=== PATIENT | male | born 1955 | race Caucasian/White ===

== ENCOUNTER 2017-08-19 10:41 | Emergency (ER) | payer BC ==
[2017-08-19] MEDS ORDERED: Labetalol 100 MG/20 ML MDV IVPUSH ONE ×2 (11:08→11:31)
[2017-08-19] MEDS ORDERED: Sodium Chloride 0.9% 10 ML Syringe FLUSH PRN (11:08)
--- NOTE | 2017-08-19 11:13 | EDM.PDOC ---
ED HPI GENERAL MEDICAL PROBLEM - General Chief Complaint: Cardiovascular Problem Stated Complaint: HIGH BLOOD PRESSURE Time Seen by Provider: 08/19/17 11:00 Source of Information: Reports: Patient History Limitations: Reports: No Limitations - History of Present Illness INITIAL COMMENTS - FREE TEXT/NARRATIVE: 62-year-old male presents for evaluation and treatment of high blood pressure. Patient was seen at a [facility] today. He was found to have elevated blood pressures. 240/160 at 10:20 and 208/140 at 10:25. He does not HIGH blood pressure. He does not see regular physician. Does not recall the last time he had his blood pressure checked. He is not on any medications for high blood pressure. Blood pressure at triage was 258/145. Upon my presentation to the room at around 11 AM his blood pressure was 229/134. He is asymptomatic. He denies any chest pain, shortness of breath, headaches, blurry vision, double vision, lightheadedness, dizziness, syncope, nausea or vomiting. 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 [facility] - Related Data Allergies Allergy/AdvReac Type Severity Reaction Status Date / Time No Known Allergies Allergy Verified 08/19/17 10:55 Home Meds: Home Meds Lisinopril 20 mg PO DAILY #14 tablet 08/19/17 [Rx] Past Medical History - Past Health History Medical/Surgical History: Denies Medical/Surgical History Social & Family History - Family History Family Medical History: Noncontributory - Tobacco Use Smoking Status *Q: Never Smoker Second Hand Smoke Exposure: No - Caffeine Use Caffeine Use: Reports: Coffee - Recreational Drug Use Recreational Drug Use: No ED ROS GENERAL - Review of Systems Review Of Systems: See Below HEENT: Denies: Vision Change Respiratory: Denies: Shortness of Breath Cardiovascular: Reports: Blood Pressure Problem. Denies: Chest Pain, Lightheadedness, Syncope GI/Abdominal: Denies: Nausea, Vomiting Neurological: Denies: Dizziness, Headache, Syncope ED EXAM, GENERAL - Physical Exam Exam: See Below Exam Limited By: No Limitations General Appearance: Alert, WD/WN, No Apparent Distress Eye Exam: Bilateral Eye: Normal Fundi, Normal Inspection, PERRL Ears: Normal External Exam, Normal Canal, Hearing Grossly Normal, Normal TMs Nose: Normal Inspection Throat/Mouth: Normal Inspection, Normal Lips, Normal Teeth, Normal Gums, Normal Oropharynx, Normal Voice, No Airway Compromise Neck: Normal Inspection Respiratory/Chest: No Respiratory Distress, Lungs Clear, Normal Breath Sounds Cardiovascular: Normal Peripheral Pulses, Regular Rate, Rhythm, No Murmur Neurological: Alert, Oriented, Normal Cognition Psychiatric: Normal Affect, Normal Mood Skin Exam: Warm, Dry, Normal Color EKG INTERPRETATION EKG Date: 08/19/17 Time: 11:15 Rhythm: NSR Rate (Beats/Min): 68 [place]: LAD-Left [place] Deviation P-Wave: Present QRS: Normal ST-T: Normal QT: Normal EKG Interpretation Comments: NSR at 68 bpm. LVH. Left artrial enlargement. t wave inversion in V4-V6. No acute ST segment changes. Reviewed by myself and Dr. White. Course - Vital Signs Last Recorded V/S: Last Vital Signs Temp 36.3 C 08/19/17 10:45 Pulse 63 08/19/17 12:35 Resp 18 08/19/17 10:45 BP 192/137 H 08/19/17 12:35 Pulse Ox 99 08/19/17 10:45 - Orders/Labs/Meds Orders: Active Orders 24 hr Category Date Time Status EKG Documentation Completion [RC] ASDIRECTED Care 08/19/17 10:59 Active Peripheral IV Care [RC] . DIRECTED Care 08/19/17 11:08 Active Sodium Chloride 0.9% [Saline Flush] Med 08/19/17 11:08 Active 10 ml FLUSH ASDIRECTED PRN Peripheral IV Insertion Adult [OM.PC] Routine Oth 08/19/17 11:07 Ordered EKG 12 Lead [EK] Stat Ther 08/19/17 10:59 Ordered Medication Orders Sodium Chloride (Saline Flush) 10 ml FLUSH ASDIRECTED PRN PRN Reason: Keep Vein Open Last Admin: 08/19/17 11:11 Dose: 10 ml Labs: Laboratory Tests 08/19/17 08/19/17 08/19/17 Range/Units 11:05 11:05 11:55 WBC 5.84 (4.23-9.07) K/mm3 RBC 4.95 (4.63-6.08) M/mm3 Hgb 15.1 (13.7-17.5) gm/L Hct 42.9 (40.1-51.0) % MCV 86.7 (79.0-92.2) fl MCH 30.5 (25.7-32.2) pg MCHC 35.2 (32.2-35.5) g/dl RDW Std Deviation 41.3 (35.1-43.9) fL Plt Count 206 (163-337) K/mm3 MPV 9.7 (9.4-12.3) fl Neut % (Auto) 69.0 H (34.0-67.9) % Lymph % (Auto) 22.4 (21.8-53.1) % Richardson % (Auto) 5.8 (5.3-12.2) % Eos % (Auto) 2.2 (0.8-7.0) Baso % (Auto) 0.3 (0.1-1.2) % Neut # (Auto) 4.02 (1.78-5.38) K/mm3 Lymph # (Auto) 1.31 L (1.32-3.57) K/mm3 Richardson # (Auto) 0.34 (0.30-0.82) K/mm3 Eos # (Auto) 0.13 (0.04-0.54) K/mm3 Baso # (Auto) 0.02 (0.01-0.08) K/mm3 Sodium 143 (136-145) mEq/L Potassium 3.5 (3.5-5.1) mEq/L Chloride 106 (98-107) mEq/L Carbon Dioxide 26 (21-32) mEq/L Anion Gap 14.5 (5-15) BUN 17 (7-18) mg/dL Creatinine 1.7 H (0.7-1.3) mg/dL Est Cr Clr Drug Dosing 44.15 mL/min Estimated GFR (MDRD) 41 (>60) mL/min BUN/Creatinine Ratio 10.0 L (14-18) Glucose 85 (80-115) mg/dL Calcium 9.1 (8.5-10.1) mg/dL Total Bilirubin 0.9 (0.2-1.0) mg/dL AST 26 (15-37) U/L ALT 31 (16-63) U/L Alkaline Phosphatase 62 (46-116) U/L Troponin I < 0.017 (0.00-0.056) ng/mL Total Protein 7.9 (6.4-8.2) g/dl Albumin 4.0 (3.4-5.0) g/dl Globulin 3.9 gm/dL Albumin/Globulin Ratio 1.0 (1-2) Urine Color Yellow (Yellow) Urine Appearance Slt cloudy H (Clear) Urine pH 7.5 (5.0-8.0) Ur Specific [place] 1.020 (1.005-1.030) Urine Protein 1+ H (Negative) Urine Glucose (UA) Negative (Negative) Urine Ketones Negative (Negative) Urine Occult Blood Trace-lysed H (Negative) Urine Nitrite Negative (Negative) Urine Bilirubin Negative (Negative) Urine Urobilinogen 0.2 (0.2-1.0) Ur Leukocyte Esterase Negative (Negative) Meds: Medications Generic Name Dose Route Start Last Admin Trade Name Freq PRN Reason Stop Dose Admin Sodium Chloride 10 ml 08/19/17 11:08 08/19/17 11:11 Saline Flush FLUSH 10 ml ASDIRECTED PRN Administration Keep Vein Open Discontinued Medications Generic Name Dose Route Start Last Admin Trade Name Freq PRN Reason Stop Dose Admin Labetalol HCl 20 mg 08/19/17 11:08 08/19/17 11:14 Normodyne IVPUSH 08/19/17 11:09 20 mg ONETIME ONE Administration Protocol Labetalol HCl 20 mg 08/19/17 11:31 08/19/17 11:39 Normodyne IVPUSH 08/19/17 11:32 20 mg ONETIME ONE Administration Protocol Lisinopril 20 mg 08/19/17 12:12 08/19/17 12:22 Prinivil PO 08/19/17 12:13 20 mg NOW STA Administration - Radiology Interpretation Free Text/Narrative:: chest [address] Valdivia: Heart is slightly enlarged. Tortuous thoracic aorta is seen. Minimal linear densities noted within both lungs most likely due date incidental discoid atelectasis or scarring. Lungs otherwise are clear. Bony structures are grossly intact. - Re-Assessments/Exams Free Text/Narrative Re-Assessment/Exam: 08/19/17 11:12 Plan will be to obtain labs, chest x-ray and EKG. Will start with IV labetalol 20 mg and see a response, as he is juma to blood pressure medications. We'll continue to monitor him here in the ER. I did educate him that given this is likely a chronic problem we will not shoot for a perfect blood pressure 120/80. Instead we will try to achieve a blood pressure, systolic, of 180 today. 08/19/17 11:31 Blood pressure at this time is 206/125, heart rate of 63. An additional 20 mg IV labetalol ordered. EKG shows no acute changes. Awaiting labs. 08/19/17 12:06 Blood pressure at this time is 207/123, HR in the 60s. Labs returned. Creatinine elevated at 1.7, GFR is 41. Awaiting UA. Case discussed with Dr. White. Recommended starting lisinopril 20mg PO daily and close follow-up. Given this is a chronic problem, furtherintervention is not indicated at this time. 08/19/17 12:40 I reviewed the chest x-ray, EKG and lab results with the patient. At this point his blood pressure is 192/137. Given this is a chronic problem reducing his blood pressure anymore will likely cause problems for him. Feel we should reduce his blood pressure gradually over time. I will start him on lisinopril 20 mg daily. I'll have him follow-up next week with family medicine. I encouraged him to purchase a blood pressure cuff and check his blood pressure daily. Discharge instructions as documented. Departure - Departure Time of Disposition: 12:40 Disposition: Home, Self-Care 01 Condition: Fair Clinical Impression: Hypertensive heart disease Prescriptions: Lisinopril 20 mg PO DAILY #14 tablet Referrals: PCP,None [Primary Care Provider] - Forms: ED Department Discharge Additional Instructions: Take the lisinopril as prescribed. 1 tab daily. Start this prescription tomorrow. I encourage you to purchase a blood pressure cuff. Check your blood pressure daily and record this. Take this to your follow-up appointment. Follow-up with family medicine or internal medicine next week. Recommend Dr. Narcisa Liz. Please call [phone] to schedule an appointment with one of these providers. Avoid salt. Please return to the ER if your symptoms change or worsen. - My Orders Last 24 Hours: My Active Orders 08/19/17 11:07 Peripheral IV Insertion Adult [OM.PC] Routine 08/19/17 11:08 Peripheral IV Care [RC] . DIRECTED Sodium Chloride 0.9% [Saline Flush] 10 ml FLUSH ASDIRECTED PRN - Assessment/Plan Last 24 Hours: My Active Orders 08/19/17 11:07 Peripheral IV Insertion Adult [OM.PC] Routine 08/19/17 11:08 Peripheral IV Care [RC] . DIRECTED Sodium Chloride 0.9% [Saline Flush] 10 ml FLUSH ASDIRECTED PRN
--- NOTE | 2017-08-19 12:00 | CR ---
Chest: Portable view of the chest was obtained. Comparison: No previous study. Heart is slightly enlarged. Tortuous thoracic aorta is seen. Minimal linear densities noted within both lungs most likely due to incidental discoid atelectasis or scarring. Lungs otherwise are clear. Bony structures are grossly intact. Impression: 1. Incidental findings. Nothing acute is appreciated on frontal chest x-ray. Diagnostic code #2
[2017-08-19] MEDS ORDERED: Lisinopril 20 MG Tab PO STA (12:12)
== END 2017-08-19 12:50 | disposition home or self-care (01) ==
LOC: JD.ED 10:41
DX: I11.9 Hypertensive heart disease without heart failure (principal); Z79.899 Other long term (current) drug therapy
CPT/HCPCS: 36415; 71010; 80053; 81003; 84484; 85025; 93005; 96374; 99284; A9270; J7050; 93010

== ENCOUNTER 2023-02-26 16:04 | Emergency (ER) | payer BC ==
[2023-02-26] MEDS ORDERED: LORazepam 2 MG/ML SDV IVPUSH ONE (16:57)
[2023-02-26] MEDS ORDERED: Glucagon,Human Recombinant 1 MG Vial IVPUSH ONE (16:57)
[2023-02-26] MEDS ORDERED: Sodium Chloride 0.9% 10 ML Syringe FLUSH PRN (16:57)
[2023-02-26] MEDS ORDERED: Lactated Ringers 1,000 ML IV SCH (17:00)
[2023-02-26] MEDS ORDERED: fentaNYL 100 MCG/2 ML SDV IVPUSH PRN (19:58)
[2023-02-26] MEDS ORDERED: HYDROmorphone 0.5 MG/0.5 ML Syringe IVPUSH PRN (19:58)
[2023-02-26] MEDS ORDERED: Ondansetron 4 MG/2 ML SDV IVPUSH PRN (19:58)
[2023-02-26] MEDS ORDERED: Succinylcholine 200 MG/10 ML MDV ONE (20:07)
[2023-02-26] MEDS ORDERED: Lidocaine 1% 2 ML ONE (20:07)
[2023-02-26] MEDS ORDERED: Ondansetron 4 MG/2 ML SDV ONE (20:07)
[2023-02-26] MEDS ORDERED: Midazolam 1 MG/ML 2 ML SDV ONE (20:07)
[2023-02-26] MEDS ORDERED: fentaNYL 100 MCG/2 ML SDV ONE (20:07)
[2023-02-26] MEDS ORDERED: Propofol 200 MG/20 ML SDV ONE (20:07)
[2023-02-27] MEDS ORDERED: Pantoprazole 40 MG Tab.CR PO ONE (20:52)
== END 2023-02-26 21:15 | disposition critical access hospital (66) ==
LOC: JD.ED 16:04
DX: T18.128A Food in esophagus causing other injury, initial encounter (principal)
CPT/HCPCS: 96361; 96374; 96375; 99284; J0330; J1610; J2060; J2405; J3490; J7120; 99285; J2250; J2704; J3010